=== PATIENT | male | born 1940 | race Two or more races ===

== ENCOUNTER 2023-04-10 08:21 | Emergency (ER) | payer OTHER ==
[~2023-04-10] VITALS: Ht 182.9 cm; Wt 109.3 kg
[2023-04-10] MEDS ORDERED: MOVANTIK25 MG PO (09:15)
[2023-04-10] MEDS ORDERED: ADULT LOW DOSE81 M1 (09:15)
[2023-04-10] MEDS ORDERED: NUCYNTA ER200 MG PO (09:16)
[2023-04-10] MEDS ORDERED: PANTOPRAZOLE SO20 MG PO (09:16)
[2023-04-10] MEDS ORDERED: METFORMIN HCL500 MG (09:16)
[2023-04-10] MEDS ORDERED: OXYBUTYNIN CHLOR5 MG PO (09:16)
[2023-04-10] MEDS ORDERED: ATORVASTATIN CA40 MG PO (09:17)
[2023-04-10] MEDS ORDERED: PANTOPRAZOLE SO40 MG (09:17)
[2023-04-10] MEDS ORDERED: HORIZANT300 MG (09:17)
[2023-04-10] MEDS ORDERED: REMERON45 M1 PO (09:18)
[2023-04-10] MEDS ORDERED: TRAZODONE HCL50 MG PO (09:18)
[2023-04-10 10:26] LABS: HEMATOCRIT 36.6 % (39.0-48.0); HEMOGLOBIN 12.3 g/dL (13-16.00); MEAN CELL VOLUME 92.7 fL (80.0-100.00); MEAN CORPUSCULAR HEMOGLOBIN 31.1 pg (27.00-32.0); MEAN CORPUSCULAR HGB CONC 33.6 g/dl (32.0-36.0); PLATELET COUNT 224 K/uL (150-450); RED BLOOD COUNT 3.95 M/uL (4.00-6.00); RED CELL DISTRIBUTION WIDTH 14.7 % (11.5-14.5)
[2023-04-10 10:37] LABS: INR 0.98; PARTIAL THROMBOPLASTIN TIME 25.5 SECONDS (22.0-34.0); PROTHROMBIN TIME 10.3 SECONDS (9.0-11.5)
[2023-04-10 10:51] LABS: CALCIUM 8.9 mg/dL (8.5-10.1); CREATININE SERUM 1.25 mg/dL (0.70-1.30); GFR 55.57; POTASSIUM 3.98 mEq/L (3.5-5.1)
[2023-04-10 12:12] LABS: PH,URINE 5.5 (5.0-8.0); URINE APPEARANCE Clear; URINE BILIRRUBIN Negative (NEGATIVE); URINE BLOOD Small; URINE COLOR Yellow; URINE GLUCOSE Negative (NEGATIVE); URINE LEUKOCYTE Small; URINE NITRATE Negative; URINE PROTEIN Trace (NEGATIVE); URINE UROBILINOGEN 0.2 E.U./dl
[2023-04-10 12:13] LABS: URINE BACTERIA 30.2 uL (0.0-1933); URINE EPITHELIAL CELLS 2.9 uL (0.0-38.8); URINE RBC 32.9 uL (0.0-20.8); URINE WBC 40.7 uL (0.0-23.2)
[2023-04-10] MEDS ORDERED: INTESTINEX680 M1 PO (13:33)
[2023-04-10] MEDS ORDERED: PEPCID AC20 MG PO (13:33)
[2023-04-10] MEDS ORDERED: DICY20TA PO (13:33)
== END 2023-04-10 13:39 | disposition home or self-care (01) ==
LOC: ER 08:22
PROVIDERS: General Practice
DX: R10.9 Unspecified abdominal pain (principal); K62.5 Hemorrhage of anus and rectum; Z95.1 Presence of aortocoronary bypass graft; I10 Essential (primary) hypertension; I20.89 Other forms of angina pectoris; K64.9 Unspecified hemorrhoids; K57.30 Diverticulosis of large intestine without perforation or abscess without bleeding
CPT/HCPCS: 36415; 74177; 96365; 96366; 99284; J3490; J7042; Q9965